=== PATIENT | male | born 1985 | race African-American/Black ===

== ENCOUNTER 2018-10-16 11:44 | Emergency (ER) | payer SELFPAY ==
[~2018-10-16] VITALS: Ht 180.3 cm; Wt 146.0 kg
[2018-10-16] MEDS ORDERED: TETANUS, DIPHTHERIA, PERTUSSIS VAC/PF 0.5ML (>7YR OLD) IM ONE (14:00)
[2018-10-16] MEDS ORDERED: TRIAMTERENE/HYDROCHLOROTHIAZIDE 37.5/25MG CAPSULE PO ONE (14:15)
[2018-10-16] MEDS ORDERED: LIDOCAINE HCL/PF 1% 10 MG/ML 30ML VIAL INFIL ONE (14:45)
[2018-10-16] MEDS ORDERED: LIDOCAINE HCL/PF 1% 10 MG/ML 5ML VIAL IJ ONE (15:15)
[2018-10-16] MEDS ORDERED: CEPHALEXIN 250MG CAPSULE PO ONE (15:45)
[2018-10-16 16:20] VITALS: BP 173/124
== END 2018-10-16 16:31 | disposition home or self-care (01) ==
LOC: ER 11:44
DX: L02.611 Cutaneous abscess of right foot (principal); I10 Essential (primary) hypertension; F17.200 Nicotine dependence, unspecified, uncomplicated
CPT/HCPCS: 10060; 73630; 90471; 90715; 99283; J3490